=== PATIENT | male | born 1980 | race Caucasian/White ===

== ENCOUNTER 2021-07-21 12:21 | Emergency (ER) | payer OTHER ==
[~2021-07-21] VITALS: Ht 188 cm; Wt 99.8 kg
[~2021-07-21 12:21] MED LIST: MIRALAX17 GM PO; NORCO 5-325 TA1 EACH PO; ZOFRAN ODT8 MG PO
[2021-07-21] MEDS ORDERED: VENTOLIN HFA18 GM INH (14:43)
== END 2021-07-21 15:15 | disposition home or self-care (01) ==
LOC: ED 12:21
DX: U07.1 COVID-19 (principal); J12.82 Pneumonia due to coronavirus disease 2019
CPT/HCPCS: 71045; 96374; 99284-25; J2405; J7030